=== PATIENT | female | born 1950 | race Caucasian/White ===

== ENCOUNTER 2016-12-03 21:46 | Emergency (ER) | payer OTHER, MEDICAID ==
[~2016-12-03] VITALS: Ht 157.5 cm; Wt 48.1 kg
[2016-12-03 22:01] VITALS: BP_SYST 156
[2016-12-03] MEDS ORDERED: NACL 0.9% 1,000 ML IV ONE (22:07)
[2016-12-03] MEDS ORDERED: ONDANSETRON HCL 4 MG/2 ML VIAL IVP ONE (22:15)
[2016-12-03 23:10] LABS: BASOPHILS % (AUTO) 0.2 % (0.0-2.0); EOSINOPHILS % (AUTO) 0.3 % (0.0-4.0); HEMATOCRIT 42.7 % (36-48); LYMPHOCYTES # (AUTO) 1.1 K/uL (1.0-5.5); LYMPHOCYTES % (AUTO) 10.7 % (20.5-51.5); MEAN CORPUSCULAR HEMOGLOBIN 30 pg (27-31); MEAN CORPUSCULAR HGB CONC 33 % (32-36); MEAN CORPUSCULAR VOLUME 93 fL (79.0-98.0); MONOCYTES # (AUTO) 0.6 K/uL (0.0-1.0); MONOCYTES % (AUTO) 5.3 % (1.7-9.3); NEUTROPHILS # (AUTO) 8.7 K/uL (1.8-7.7); NEUTROPHILS % (AUTO) 83.5 % (40.0-70.0); PLATELET COUNT (AUTO) 264 K/uL (130-430); RED BLOOD CELL COUNT(AUTO) 4.61 MIL/uL (4.2-6.2); RED CELL DISTRIBUTION WIDTH 12.1 % (9.0-15.0); WHITE BLOOD COUNT (AUTO) 10.4 K/uL (4.8-10.8)
[2016-12-03 23:20] LABS: CREATININE 0.86 mg/dL (0.55-1.30); INR 0.9 (0.8-1.2); POTASSIUM 3.5 mmol/L (3.5-5.1); PROTHROMBIN TIME 10.1 SECS (9.5-12.5)
[2016-12-03 23:30] LABS: TOTAL BILIRUBIN 0.3 mg/dL (0.0-1.0)
[2016-12-04 00:21] LABS: BILIRUBIN,URINE NEGATIVE (NEGATIVE); BLOOD, URINE 1+ (NEGATIVE); CLARITY/URINE CLEAR (CLEAR); COLOR,URINE YELLOW (YELLOW); GLUCOSE,URINE NEGATIVE (NEGATIVE); KETONES,URINE NEGATIVE (NEGATIVE); LEUKOCYTE ESTERASE ,URINE NEGATIVE (NEGATIVE); NITRITE, URINE NEGATIVE (NEGATIVE); PROTEIN URINE NEGATIVE (NEGATIVE); UROBILINOGEN,URINE 0.2 (0.2-1.0)
[2016-12-04 00:24] LABS: BACTERIA,URINE FEW /HPF (None Seen); MUCUS,URINE None Seen /LPF (None Seen); RBC,URINE 0-3 /HPF (0-3); WBC,URINE 0-3 /HPF (0-3)
[2016-12-04 00:25] VITALS: BP_SYST 136
== END 2016-12-04 00:25 | disposition home or self-care (01) ==
LOC: SED 21:46
DX: K29.00 Acute gastritis without bleeding (principal); I10 Essential (primary) hypertension; Z90.710 Acquired absence of both cervix and uterus
CPT/HCPCS: 36415; 80053; 81000; 82150; 83690; 85025; 85610; 85730; 96361; 96374; 99284; J2405; J7030

== ENCOUNTER 2018-06-27 21:44 | Inpatient (IN) | payer OTHER, MEDICAID ==
[~2018-06-27] VITALS: Ht 152.4 cm; Wt 49.0 kg
[2018-06-27 21:52] VITALS: BP_SYST 166
--- NOTE | 2018-06-27 22:01 | NUR ---
EKG obtained in triage, NSR, HR 71. Pt placed to ER waiting room in stable condition. Dr. Ramos made aware.
[2018-06-27 23:28] LABS: HEMATOCRIT 42.9 % (36-48); HEMOGLOBIN 14.5 g/dL (12.0-16.0); MEAN CORPUSCULAR HEMOGLOBIN 32 pg (27-31); MEAN CORPUSCULAR HGB CONC 34 % (32-36); MEAN CORPUSCULAR VOLUME 94 fL (79.0-98.0); RED CELL DISTRIBUTION WIDTH 12.9 % (9.0-15.0); WHITE BLOOD COUNT (AUTO) 10.4 K/uL (4.8-10.8)
[2018-06-27 23:29] LABS: PLATELET COUNT (AUTO) 263 K/uL (130-430)
[2018-06-27 23:32] LABS: BASOPHILS % (AUTO) 0.3 % (0.0-2.0); EOSINOPHILS # (AUTO) 0.1 K/uL (0.0-0.4); LYMPHOCYTES # (AUTO) 2.1 K/uL (1.0-5.5); LYMPHOCYTES % (AUTO) 20.7 % (20.5-51.5); MONOCYTES # (AUTO) 0.7 K/uL (0.0-1.0); MONOCYTES % (AUTO) 7.1 % (1.7-9.3); NEUTROPHILS # (AUTO) 7.4 K/uL (1.8-7.7); NEUTROPHILS % (AUTO) 70.9 % (40.0-70.0)
[2018-06-27 23:36] LABS: CALCIUM 10.3 mg/dL (8.4-11.0); CREATININE 0.59 mg/dL (0.55-1.30); POTASSIUM 3.3 mmol/L (3.5-5.1)
[2018-06-27 23:44] LABS: ALBUMIN 3.7 g/dL (3.4-4.8); TOTAL BILIRUBIN 0.2 mg/dL (0.0-1.0)
--- NOTE | 2018-06-28 00:05 | NUR ---
Pt placed to ER bed 07, to gown. Pt report given to MAE Holman.
--- NOTE | 2018-06-28 00:10 | NUR ---
0010 - Pt states left rib/chest pain started last night. Pt states no pain at this time, described as dull/weak. Was radiating to left arm, but no pain at this time. A&XO4, BP elevated, otherwise VSS. Hx of HTN. only takes 1 med for BP
--- NOTE | 2018-06-28 00:17 | NUR ---
0017 - ER at bedside examining patient.
[2018-06-28] MEDS ORDERED: ASPIRIN 81 MG TAB.CHEW PO ONE (00:30)
--- NOTE | 2018-06-28 00:44 | NUR ---
Pt states that C/P and numbness has completely resolved. No needs verbalized at this time. VSS.
--- NOTE | 2018-06-28 02:40 | NUR ---
0240 - Pt in no distress, resting comfortably. Ready for transport. A&OX4.
--- NOTE | 2018-06-28 02:58 | NUR ---
ADMIT NOTE Received pt from ER to the floor with a diagnosis of Chest pain. Admission process initiated. patient oriented to pain management, safety and call light-teach back done.
[2018-06-28 03:02] LABS: BILIRUBIN,URINE NEGATIVE (NEGATIVE); BLOOD, URINE 1+ (NEGATIVE); CLARITY/URINE CLEAR (CLEAR); COLOR,URINE YELLOW (YELLOW); GLUCOSE,URINE NEGATIVE (NEGATIVE); KETONES,URINE NEGATIVE (NEGATIVE); LEUKOCYTE ESTERASE ,URINE NEGATIVE (NEGATIVE); NITRITE, URINE NEGATIVE (NEGATIVE); PH,URINE 6.5 (5.0-8.0); PROTEIN URINE NEGATIVE (NEGATIVE); UROBILINOGEN,URINE 0.2 (0.2-1.0)
--- NOTE | 2018-06-28 03:05 | NUR ---
INITIAL NOTE BEDSIDE REPORT RECEIVED FROM MAE SWAIN. PATIENT IS RESTING IN BED, STABLE, NO SIGNS OF RESPIRATORY DISTRESS. PATIENT VERBALIZES NO PAIN OR DISCOMFORT AT THIS TIME. CALL LIGHT- TEACH BACK IS SUCCESSFUL. BED IS LOCKED, ALARMED, AND AT THE LOWEST LEVEL. FALL AND SAFETY PRECAUTIONS WILL BE IN PLACE THROUGHOUT THE SHIFT.
[2018-06-28 03:07] VITALS: BP_SYST 155
[2018-06-28 03:11] LABS: WBC,URINE 0-3 /HPF (0-3)
[2018-06-28 03:12] LABS: BACTERIA,URINE RARE /HPF (None Seen)
[2018-06-28] MEDS ORDERED: BENA1TAB71 PO (03:16)
--- NOTE | 2018-06-28 04:26 | NUR ---
CONSULT REASON FOR CONSULT: CHEST PAIN PERSON I SPOKE WITH: WENDY CONSULTING PHYSICIAN: DR. FONTAINE SKIN DIVING TEACHER PHONE NUMBER: [phone] ORDERING PHYSICIAN: DR. FERRIS
--- NOTE | 2018-06-28 04:33 | NUR ---
NOTE PATIENT HAS BEEN PROVIDED FRESH LINENS AND HYGIENE CARE. SHE IS NOW SLEEPING, STABLE, NO SIGNS OF RESPIRATORY DISTRESS. CALL LIGHT IS WITHIN REACH. BED IS LOCKED, ALARMED, AND AT THE LOWEST LEVEL.
--- NOTE | 2018-06-28 06:31 | NUR ---
CLOSING NOTE PATIENT VERBALIZED NO CHEST PAIN THROUGHOUT THE SHIFT. AT THIS TIME, PATIENT IS SLEEPING, STABLE, NO SIGNS OF RESPIRATORY DISTRESS. CALL LIGHT WITHIN REACH. BED IS LOCKED, ALARMED, AND AT THE LOWEST LEVEL. ALL NEEDS MET. FALL AND SAFETY PRECAUTIONS TAKEN THROUGHOUT THE SHIFT. WILL CONTINUE TO MONITOR UNTIL SHIFT REPORT IS GIVEN AT BEDSIDE TO AM NURSE.
--- NOTE | 2018-06-28 07:20 | NUR ---
AM ROUNDS: BEDSIDE REPORT GIVEN BY NIGHT NURSE CARLY.NO NEEDS THIS TIME. CALL LIGHT WITH IN REACH. BED LOCKED AT LOWEST POSITION. NOT IN ANY DISTRESS.
[2018-06-28] MEDS ORDERED: *LOVENOX 1MG/KG Q12H/PHARMACY XX PRN (07:30)
[2018-06-28] MEDS ORDERED: POTASSIUM CHLORIDE 20 MEQ TAB.PRT.SR PO ONE (07:45)
[2018-06-28 07:58] VITALS: BP_SYST 146
[2018-06-28 08:24] LABS: CALCIUM 9.9 mg/dL (8.4-11.0); CREATININE 0.58 mg/dL (0.55-1.30); POTASSIUM 3.8 mmol/L (3.5-5.1)
[2018-06-28] MEDS: FAMOTIDINE 20 MG TABLET PO SCH ×2 (08:24→21:06)
[2018-06-28 08:28] LABS: INR 0.9 (0.8-1.2); PROTHROMBIN TIME 9.5 SECS (9.5-12.5)
[2018-06-28] MEDS: ENOXAPARIN SODIUM 60 MG/0.6 ML SYRINGE SUBCUT SCH ×2 (08:28→21:07)
[2018-06-28 08:40] LABS: ALBUMIN 3.5 g/dL (3.4-4.8); THYROID STIMULATING HORMONE 3.28 uIu/mL (0.36-3.74); TOTAL BILIRUBIN 0.3 mg/dL (0.0-1.0)
[2018-06-28] MEDS ORDERED: BENAZEPRIL HCL 10 MG TABLET (LOTENSIN) PO SCH (09:00)
[2018-06-28] MEDS ORDERED: ASPIRIN 81 MG TAB.CHEW PO SCH (09:00)
[2018-06-28] MEDS ORDERED: HYDROCHLOROTHIAZIDE 12.5 MG CAPSULE (HCTZ) PO SCH (09:00)
[2018-06-28] MEDS ORDERED: ATORVASTATIN 20 MG TABLET PO ONE (09:15)
--- NOTE | 2018-06-28 10:30 | NUR ---
RN ROUNDS: RESTING. NO DISTRESS.
[2018-06-28] MEDS ORDERED: ENOXAPARIN SODIUM 60 MG/0.6 ML SYRINGE SUBCUT ONE (10:45)
--- NOTE | 2018-06-28 11:15 | NUR ---
LISA PLANNING Order to transfer to [facility] for Cardiac Angiogram. [place] [facility] [place] already spoke w Dr Gomez @ [facility] & accepted pt for possible Angiogram today. I spoke w pt & Shadia Tee @ bedside, are already aware & agreeable w transfer to [facility]. I called & spoke w Yomi @ [facility], ph [phone] fax [phone], state to fax pt info & she will call Dr Gomez if for today or tomorrow. Called & spoke w Penny Richard CM vendor relationship manager @ [facility], after hrs ph [phone], informed of order. [facility] gives auth for transfer w Auth #[id number]. [facility] contracted ambulance [facility], ph [phone], or [facility], ph [phone], w same auth#, if they cannot transfer pt can use any ambulance. Addendum: 06/28/18 at 1217 by Naomy Young RN Called & spoke w Yomi @ [facility], states spoke w Dr Gomez & procedure is for tomorrow, pt to be @ [facility] @ 0900, does not have time of procedure only that he told her to be there @ 0900. Call report in am to [facility], ph [phone]. Called [facility] & [facility] & neither could do ACLS. Called & set up ambulance transfer w [facility], ph [phone], for pick up and delivery driver tomorrow @ 0815, aware needs to be @ [facility] tomorrow @ 0900. CD ordered & placed in transfer packet, transfer packet in nsg station. Updated pt's nurse Leda, & Jennifer Resource nurse. Updated pt @ bedside in Togolese, agreeable w plan to transfer to [facility] tomorrow @ 0815.
[2018-06-28 11:30] VITALS: BP_SYST 150
--- NOTE | 2018-06-28 12:00 | NUR ---
RN NOTES: SPOKE WITH YOAN WALDEN AND THAT PATIENT WILL BE TRANSFER TO [facility] FOR ANGIOGRAM TOMORROW 0815AM.
--- NOTE | 2018-06-28 14:30 | NUR ---
RN ROUNDS: SITTING ON THE CHAIR. NO NEEDS THIS TIME.
[2018-06-28 16:02] VITALS: BP_SYST 137
--- NOTE | 2018-06-28 19:24 | NUR ---
END OF SHIFT : REPORT GIVEN TO NIGHT NURSE KRISTEL. STABLE DENIES ANY CHEST PAIN.
--- NOTE | 2018-06-28 19:54 | NUR ---
Initial note: Received report from dayshift RN. Patient is awake watching TV. Alert and oriented x4, ambulates with steady gait. Tolerating room air, respirations even and unlabored. IV noted to patient's left AC, site is patent and benign. Call light is with patient. Safety, fall precautions in place. Will continue monitoring.
[2018-06-28 20:39] VITALS: BP_SYST 157
--- NOTE | 2018-06-28 22:49 | NUR ---
Rounds: Patient is resting in bed, no distress. Breathing is even and unlabored on room air. Call light with patient. Will continue monitoring.
[2018-06-29 00:31] VITALS: BP_SYST 137
--- NOTE | 2018-06-29 02:22 | NUR ---
Rounds: Patient is sleeping, no acute distress. Respirations are even and unlabored on room air. Call light with patient. Will continue monitoring.
[2018-06-29 03:16] VITALS: BP_SYST 137
[2018-06-29 04:22] LABS: CALCIUM 9.7 mg/dL (8.4-11.0); CREATININE 0.63 mg/dL (0.55-1.30); POTASSIUM 3.8 mmol/L (3.5-5.1)
[2018-06-29 04:28] LABS: ALBUMIN 3.5 g/dL (3.4-4.8); TOTAL BILIRUBIN 0.4 mg/dL (0.0-1.0)
[2018-06-29 04:50] LABS: RED BLOOD CELL COUNT(AUTO) 4.49 MIL/uL (4.2-6.2); WHITE BLOOD COUNT (AUTO) 7.9 K/uL (4.8-10.8)
[2018-06-29 04:51] LABS: BASOPHILS % (AUTO) 0.3 % (0.0-2.0); EOSINOPHILS % (AUTO) 0.8 % (0.0-4.0); HEMATOCRIT 41.9 % (36-48); HEMOGLOBIN 14.1 g/dL (12.0-16.0); LYMPHOCYTES % (AUTO) 32.8 % (20.5-51.5); MEAN CORPUSCULAR HEMOGLOBIN 31 pg (27-31); MEAN CORPUSCULAR HGB CONC 34 % (32-36); MEAN CORPUSCULAR VOLUME 93 fL (79.0-98.0); MONOCYTES % (AUTO) 6.5 % (1.7-9.3); NEUTROPHILS % (AUTO) 59.6 % (40.0-70.0); PLATELET COUNT (AUTO) 260 K/uL (130-430); RED CELL DISTRIBUTION WIDTH 12.6 % (9.0-15.0)
[2018-06-29 04:52] LABS: EOSINOPHILS # (AUTO) 0.1 K/uL (0.0-0.4); LYMPHOCYTES # (AUTO) 2.6 K/uL (1.0-5.5); MONOCYTES # (AUTO) 0.5 K/uL (0.0-1.0); NEUTROPHILS # (AUTO) 4.7 K/uL (1.8-7.7)
--- NOTE | 2018-06-29 05:00 | NUR ---
[facility] PACK[facility] RN TOLD ME TO PREPARE A NEW PACKAGE 0500 SO I ASKED IF I HAVE TO [facility] HE TOLD ME THAT IT WAS [facility] YESTERDAY BY CASE AND CAPPER MACHINE OPERATOR TIME WILL BE @ 0800
--- NOTE | 2018-06-29 05:30 | NUR ---
[facility] @ [phone] TO FOLLOWED [facility] EMT SAID THEY DO NOT HAVE ANY INFORMATION REGARDING THIS PATIENT
--- NOTE | 2018-06-29 05:40 | NUR ---
[facility] I CALLED [facility] @ [phone] WAITED AND WAITED FOR 10 MINUTES NOBODY ANSWERED FINALLY I LEFT A MESSAGE IN THE ANSWERING MACHINE WITH OUR PHONE NUMBER
--- NOTE | 2018-06-29 05:47 | NUR ---
Closing note: Patient is resting in bed with eyes closed, no distress. Breathing is even and unlabored on room air. No complaints of pain throughout the shift. All needs met. Safety, fall precautions in place. Will endorse to dayshift RN.
--- NOTE | 2018-06-29 05:52 | NUR ---
[facility] CALLED AGAIN @ [phone] [facility] ONLY ANSWERING MACHINE I LEFT A SECOND MESSAGE NO CALLED BACK FROM THEM UNTIL NOW
--- NOTE | 2018-06-29 06:21 | NUR ---
[facility] CALLED [facility] @ 5348 TO FOLLOWED UP I SPOKE WITH ROSELINE EMT. HE SAID TECHNICAL COMMUNICATION TEACHER TIME [phone]
--- NOTE | 2018-06-29 06:44 | NUR ---
Called for report: Called [facility] twice ([phone], as provided by insurance case manager in note from 06/28/18) to give report, but the calls were not answered. Will endorse to marni WALL.
--- NOTE | 2018-06-29 07:45 | NUR ---
initial notes rec patient with hob elevated. ivl on the r ac intact. no infiltration noted. resp easy and unlabored. bed to the lowest position and side rails up and locked. at bedside. npo was instructed for cardiac cath at [facility]. [facility] woven label designer was called and spoke with sal and report given .
[2018-06-29 08:00] VITALS: BP_SYST 157
[2018-06-29] MEDS ORDERED: ATORVASTATIN 20 MG TABLET PO SCH (09:00)
== END 2018-06-29 08:15 | disposition short-term general hospital (02) | DRG 282 ==
LOC: SED 21:44 → STU 06-28 02:39
PROVIDERS: ADMIT Internal Medicine; ATTEND Internal Medicine
DX: I21.4 Non-ST elevation (NSTEMI) myocardial infarction (principal); E78.5 Hyperlipidemia, unspecified; E87.6 Hypokalemia; I10 Essential (primary) hypertension; Z80.1 Family history of malignant neoplasm of trachea, bronchus and lung; Z90.710 Acquired absence of both cervix and uterus; Z90.722 Acquired absence of ovaries, bilateral
CPT/HCPCS: 36415; 71045; 80053; 80061; 81000-TC; 83880; 84443-TC; 84484; 85025; 85610-TC; 85730-TC; 93005; 93306; 99285; G0378; J1650

== ENCOUNTER 2022-08-17 18:29 | Emergency (ER) | payer OTHER, MEDICAID ==
[~2022-08-17] VITALS: Ht 154.9 cm; Wt 54.4 kg
[~2022-08-17 18:29] MED LIST: BENA1TAB71 PO
[2022-08-17 18:41] VITALS: BP_SYST 186
[2022-08-17] MEDS ORDERED: cloNIDine HCL 0.1 MG TABLET PO ONE (19:00)
[2022-08-17] MEDS ORDERED: ONDANSETRON 4 MG ODT TAB PO ONE (19:00)
[2022-08-17] MEDS ORDERED: METOCLOPRAMIDE HCL 10 MG/2 ML VIAL IM ONE (19:00)
[2022-08-17 19:28] LABS: HEMOGLOBIN 13.3 g/dL (12.0-16.0); MEAN CORPUSCULAR VOLUME 94 fL (79.0-98.0); RED CELL DISTRIBUTION WIDTH 13.3 % (9.0-15.0)
[2022-08-17 19:32] LABS: BASOPHILS % (AUTO) 0.3 % (0.0-2.0); EOSINOPHILS # (AUTO) 0.1 K/uL (0.0-0.4); EOSINOPHILS % (AUTO) 0.6 % (0.0-4.0); HEMATOCRIT 39.7 % (36-48); LYMPHOCYTES # (AUTO) 1.1 K/uL (1.0-5.5); LYMPHOCYTES % (AUTO) 13.3 % (20.5-51.5); MEAN CORPUSCULAR HEMOGLOBIN 32 pg (27-31); MEAN CORPUSCULAR HGB CONC 34 % (32-36); MONOCYTES # (AUTO) 0.6 K/uL (0.0-1.0); MONOCYTES % (AUTO) 6.9 % (1.7-9.3); NEUTROPHILS # (AUTO) 6.6 K/uL (1.8-7.7); NEUTROPHILS % (AUTO) 78.9 % (40.0-70.0); PLATELET COUNT (AUTO) 250 K/uL (130-430); RED BLOOD CELL COUNT(AUTO) 4.21 MIL/uL (4.2-6.2); WHITE BLOOD COUNT (AUTO) 8.4 K/uL (4.8-10.8)
[2022-08-17 19:38] LABS: ALANINE AMINOTRANSFERASE 26 U/L (12-78); ALBUMIN 3.6 g/dL (3.4-4.8); ANION GAP 8 (5-15); ASPARTATE AMINOTRANSFERASE 17 U/L (10-37); CALCIUM 9.3 mg/dL (8.4-11.0); CHLORIDE 105 mmol/L (98-107); CREATININE 0.74 mg/dL (0.55-1.30); GLUCOSE 116 mg/dL (70-99); TOTAL BILIRUBIN 0.2 mg/dL (0.0-1.0); UREA NITROGEN, BLOOD 20 mg/dL (8-21)
[2022-08-17] MEDS ORDERED: ONDA-8 TL (20:17)
[2022-08-17 21:20] VITALS: BP_SYST 97
== END 2022-08-17 20:50 | disposition home or self-care (01) ==
LOC: SED 18:29
DX: A05.9 Bacterial foodborne intoxication, unspecified (principal); R11.2 Nausea with vomiting, unspecified; I10 Essential (primary) hypertension; R42 Dizziness and giddiness
CPT/HCPCS: 99284; 80053; 82962; 85025; 84484; 36415; 93005; 96372; Q0162; J2765

== ENCOUNTER 2022-09-12 15:15 | Emergency (ER) | payer OTHER, MEDICAID ==
[~2022-09-12] VITALS: Ht 154.9 cm; Wt 47.6 kg
[~2022-09-12 15:15] MED LIST changes: +ONDA-8 TL
[2022-09-12 15:45] VITALS: BP_SYST 145
[2022-09-12 17:29] LABS: BASOPHILS % (AUTO) 0.3 % (0.0-2.0); EOSINOPHILS % (AUTO) 0.3 % (0.0-4.0); HEMATOCRIT 41.8 % (36-48); HEMOGLOBIN 13.9 g/dL (12.0-16.0); LYMPHOCYTES # (AUTO) 1.2 K/uL (1.0-5.5); MEAN CORPUSCULAR HEMOGLOBIN 31 pg (27-31); MEAN CORPUSCULAR HGB CONC 33 % (32-36); MEAN CORPUSCULAR VOLUME 94 fL (79.0-98.0); MONOCYTES # (AUTO) 0.5 K/uL (0.0-1.0); MONOCYTES % (AUTO) 5.8 % (1.7-9.3); NEUTROPHILS # (AUTO) 6.3 K/uL (1.8-7.7); NEUTROPHILS % (AUTO) 78.6 % (40.0-70.0); PLATELET COUNT (AUTO) 235 K/uL (130-430); RED BLOOD CELL COUNT(AUTO) 4.43 MIL/uL (4.2-6.2); RED CELL DISTRIBUTION WIDTH 12.9 % (9.0-15.0)
[2022-09-12 18:34] LABS: ANION GAP 6 (5-15); CALCIUM 9.6 mg/dL (8.4-11.0); CHLORIDE 103 mmol/L (98-107); CREATININE 0.68 mg/dL (0.55-1.30); GLUCOSE 106 mg/dL (70-99); UREA NITROGEN, BLOOD 17 mg/dL (8-21)
[2022-09-12 18:41] LABS: ALANINE AMINOTRANSFERASE 25 U/L (12-78); ASPARTATE AMINOTRANSFERASE 16 U/L (10-37); LIPASE 57 U/L (73-393); TOTAL BILIRUBIN 0.4 mg/dL (0.0-1.0)
[2022-09-12 19:33] VITALS: BP_SYST 164
== END 2022-09-12 19:54 | disposition home or self-care (01) ==
LOC: SED 15:15
DX: R07.9 Chest pain, unspecified (principal); I10 Essential (primary) hypertension; Z79.899 Other long term (current) drug therapy
CPT/HCPCS: 36415; 71045; 80053; 83690; 84484; 85025; 99284

== ENCOUNTER 2022-12-18 23:54 | Emergency (ER) | payer OTHER, MEDICAID ==
[~2022-12-18] VITALS: Ht 152.4 cm; Wt 47.6 kg
[2022-12-19 00:03] VITALS: BP_SYST 179; PULSE 72; RESP 18; TEMP 98; O2SAT 97
[2022-12-19] MEDS ORDERED: AMLO5TAB4 PO ×3 (00:20→00:21)
[2022-12-19] MEDS ORDERED: LOSA-415 PO (00:26)
[2022-12-19 01:28] VITALS: BP_SYST 167; PULSE 78; RESP 16; O2SAT 97
== END 2022-12-19 01:28 | disposition home or self-care (01) ==
LOC: SED 23:54
DX: I10 Essential (primary) hypertension (principal); Z79.899 Other long term (current) drug therapy
CPT/HCPCS: 93005; 99283

== ENCOUNTER 2023-01-07 18:06 | Emergency (ER) | payer OTHER, MEDICAID ==
[~2023-01-07] VITALS: Ht 152.4 cm; Wt 68.0 kg
[~2023-01-07 18:06] MED LIST changes: +AMLO5TAB4 PO; +LOSA-415 PO
[2023-01-07 18:13] VITALS: BP_SYST 174; PULSE 75; RESP 18; TEMP 98.1; O2SAT 98
[2023-01-07 19:00] LABS: BASOPHILS % (AUTO) 0.3 % (0.0-2.0); EOSINOPHILS # (AUTO) 0.1 K/uL (0.0-0.4); HEMATOCRIT 41.8 % (36-48); HEMOGLOBIN 14.1 g/dL (12.0-16.0); LYMPHOCYTES # (AUTO) 1.9 K/uL (1.0-5.5); LYMPHOCYTES % (AUTO) 21.5 % (20.5-51.5); MEAN CORPUSCULAR HEMOGLOBIN 31 pg (27-31); MEAN CORPUSCULAR HGB CONC 34 % (32-36); MEAN CORPUSCULAR VOLUME 93 fL (79.0-98.0); MONOCYTES # (AUTO) 0.6 K/uL (0.0-1.0); MONOCYTES % (AUTO) 6.3 % (1.7-9.3); NEUTROPHILS # (AUTO) 6.4 K/uL (1.8-7.7); NEUTROPHILS % (AUTO) 70.9 % (40.0-70.0); PLATELET COUNT (AUTO) 290 K/uL (130-430); RED BLOOD CELL COUNT(AUTO) 4.49 MIL/uL (4.2-6.2)
[2023-01-07 19:17] LABS: ALANINE AMINOTRANSFERASE 28 U/L (12-78); ALBUMIN 3.9 g/dL (3.4-4.8); ANION GAP 8 (5-15); ASPARTATE AMINOTRANSFERASE 15 U/L (10-37); CALCIUM 9.4 mg/dL (8.4-11.0); CARBON DIOXIDE 29 mmol/L (23-29); CHLORIDE 101 mmol/L (98-107); CREATININE 0.64 mg/dL (0.55-1.30); GLUCOSE 115 mg/dL (74-106); POTASSIUM 3.6 mmol/L (3.5-5.1); SODIUM SERUM 138 mmol/L (136-145); TOTAL BILIRUBIN 0.3 mg/dL (0.0-1.0); UREA NITROGEN, BLOOD 17 mg/dL (8-21)
[2023-01-07 19:32] LABS: TOTAL PROTEIN, SERUM 7.9 g/dL (6.4-8.3)
[2023-01-07 20:39] VITALS: BP_SYST 150; PULSE 84; RESP 18; TEMP 98.3; O2SAT 97
== END 2023-01-07 20:39 | disposition home or self-care (01) ==
LOC: SED 18:06
DX: I15.9 Secondary hypertension, unspecified (principal); I10 Essential (primary) hypertension; Z79.899 Other long term (current) drug therapy
CPT/HCPCS: 36415; 71045; 80053; 84484; 85025; 93005; 99285

== ENCOUNTER 2023-01-30 16:32 | Emergency (ER) | payer OTHER, MEDICAID ==
[~2023-01-30] VITALS: Ht 154.9 cm; Wt 47.2 kg
[2023-01-30 16:32] VITALS: BP_SYST 145; PULSE 121; RESP 19; TEMP 98; O2SAT 99
[2023-01-30 23:15] LABS: BASOPHILS % (AUTO) 0.3 % (0.0-2.0); EOSINOPHILS % (AUTO) 0.3 % (0.0-4.0); HEMATOCRIT 42.5 % (36-48); HEMOGLOBIN 13.9 g/dL (12.0-16.0); LYMPHOCYTES # (AUTO) 1.7 K/uL (1.0-5.5); LYMPHOCYTES % (AUTO) 21.3 % (20.5-51.5); MEAN CORPUSCULAR HEMOGLOBIN 30 pg (27-31); MEAN CORPUSCULAR HGB CONC 33 % (32-36); MEAN CORPUSCULAR VOLUME 93 fL (79.0-98.0); MONOCYTES # (AUTO) 0.5 K/uL (0.0-1.0); MONOCYTES % (AUTO) 6.9 % (1.7-9.3); NEUTROPHILS # (AUTO) 5.5 K/uL (1.8-7.7); NEUTROPHILS % (AUTO) 71.2 % (40.0-70.0); PLATELET COUNT (AUTO) 280 K/uL (130-430); RED BLOOD CELL COUNT(AUTO) 4.59 MIL/uL (4.2-6.2); RED CELL DISTRIBUTION WIDTH 12.8 % (9.0-15.0); WHITE BLOOD COUNT (AUTO) 7.8 K/uL (4.8-10.8)
[2023-01-30 23:29] LABS: ANION GAP 8 (5-15); CALCIUM 10.5 mg/dL (8.4-11.0); CARBON DIOXIDE 27 mmol/L (23-29); CHLORIDE 101 mmol/L (98-107); CREATININE 0.61 mg/dL (0.55-1.30); GLUCOSE 115 mg/dL (74-106); POTASSIUM 3.5 mmol/L (3.5-5.1); SODIUM SERUM 136 mmol/L (136-145); UREA NITROGEN, BLOOD 15 mg/dL (8-21)
[2023-01-30 23:36] LABS: ALANINE AMINOTRANSFERASE 17 U/L (12-78); ALBUMIN 3.8 g/dL (3.4-4.8); ASPARTATE AMINOTRANSFERASE 13 U/L (10-37); TOTAL BILIRUBIN 0.5 mg/dL (0.0-1.0); TOTAL PROTEIN, SERUM 7.6 g/dL (6.4-8.3)
[2023-01-31 00:15] VITALS: BP_SYST 146; PULSE 68; RESP 16; TEMP 98.9; O2SAT 98
== END 2023-01-31 00:15 | disposition home or self-care (01) ==
LOC: SED 16:32
DX: R07.9 Chest pain, unspecified (principal); R09.89 Other specified symptoms and signs involving the circulatory and respiratory systems; R51.9 Headache, unspecified; I10 Essential (primary) hypertension; Z79.899 Other long term (current) drug therapy
CPT/HCPCS: 36415; 71045; 80053; 84484; 85025; 93005; 99285